=== PATIENT | female | born 1970 | race Caucasian/White ===

== ENCOUNTER 2021-09-02 15:53 | Observation (INO) ==
[2021-09-02 16:39] LABS: Basophils % 0.5 %; Eosinophils # 0.3 K/mcL (0.0-0.6); Eosinophils % 3.7 %; Hematocrit 39.1 % (35.3-44.9); Hemoglobin 12.1 g/dL (11.5-15.4); Immature Granulocytes % 0.4 % (0-4); Lymphocytes # 2.6 K/mcL (0.6-4.6); Lymphocytes % 34.1 %; Mean Corpuscular HGB Conc 30.9 g/dL (31.6-35.5); Mean Corpuscular Hemoglobin 29.7 pg (28.0-33.3); Mean Corpuscular Volume 96.1 fL (83.0-100.0); Mean Platelet Volume 11.5 fL (9.4-12.4); Monocytes # 0.7 K/mcL (0.0-1.3); Monocytes % 8.7 %; Platelet Count 278 K/mcL (140-400); Red Blood Count 4.07 M/mcL (3.82-4.97); Red Cell Distribution Width 17.8 % (11.5-14.5); Segmented Neutrophils % 52.6 %; White Blood Count 7.6 K/mcL (4.3-11.1)
[2021-09-02 17:00] LABS: BUN/Creatinine Ratio 11 (6-26); Blood Urea Nitrogen 13 mg/dL (6-20); Carbon Dioxide 23 mEq/L (23-29); Chloride 106 mEq/L (98-107); Glucose 88 mg/dL (70-105); Osmolality,Calculated 286 (280-300); Potassium 4.1 mEq/L (3.5-5.1); Sodium 138 mEq/L (136-145); eGFR For African Americans 58 (> 60); eGFR For Non-African Americans 47 (> 60)
[2021-09-02 17:01] LABS: Troponin I < 0.03 ng/mL (< 0.04)
[2021-09-02] MEDS ORDERED: Naloxone 0.4 MG/ML INJ IVP PRN (20:12)
[2021-09-02] MEDS ORDERED: Acetaminophen 325 MG TABLET PO PRN (20:12)
[2021-09-02] MEDS: Ondansetron 4 MG/2 ML VIAL IVP PRN (21:26)
[2021-09-02] MEDS ORDERED: Perflutren Lipid Microsphere 1.3 ML in 0.9 % Sodium Chloride 8.7 ML IVP PRN (22:22)
[2021-09-02] MEDS ORDERED: Aspirin 81 MG TAB.CHEW PO ONE (23:18)
[2021-09-03] MEDS ORDERED: Dextrose Gel 15 GM/37.5 ML TUBE PO PRN ×2 (00:56)
[2021-09-03] MEDS ORDERED: tiZANidine 4 MG TABLET PO PRN (00:56)
[2021-09-03] MEDS ORDERED: D5% in Water 1,000 ML IVC PRN (00:56)
[2021-09-03] MEDS ORDERED: *HR* Dextrose 50 % in Water (Syg) 50 ML SYRINGE IVP PRN (00:56)
[2021-09-03 02:21] LABS: Hematocrit 37.5 % (35.3-44.9); Hemoglobin 11.9 g/dL (11.5-15.4); Mean Corpuscular HGB Conc 31.7 g/dL (31.6-35.5); Mean Corpuscular Hemoglobin 30.7 pg (28.0-33.3); Mean Corpuscular Volume 96.6 fL (83.0-100.0); Mean Platelet Volume 10.8 fL (9.4-12.4); Platelet Count 247 K/mcL (140-400); Red Blood Count 3.88 M/mcL (3.82-4.97); Red Cell Distribution Width 18.2 % (11.5-14.5); White Blood Count 6.7 K/mcL (4.3-11.1)
[2021-09-03 02:28] LABS: INR 1.1; Prothrombin Time 12.4 Seconds (9.4-12.1)
[2021-09-03 02:31] LABS: Activated Partial Thrombo Time 39.4 Seconds (26.0-36.0)
[2021-09-03] MEDS: *HR* HYDROcodone/Acet 10/325 mg TABLET PO PRN ×2 (02:33→10:51)
[2021-09-03 02:44] LABS: Alanine Aminotransferase 46 Units/L (7-52); Albumin 3.7 g/dL (3.5-5.7); Albumin/Globulin Ratio 1.5 (1.1-2.2); Alkaline Phosphatase 98 Units/L (34-104); Aspartate Amino Transferase 28 Units/L (13-39); BUN/Creatinine Ratio 11 (6-26); Bilirubin,Total 0.5 mg/dL (0.3-1.0); Blood Urea Nitrogen 11 mg/dL (6-20); Calcium 9.1 mg/dL (8.6-10.3); Carbon Dioxide 27 mEq/L (23-29); Chloride 106 mEq/L (98-107); Chol/HDL Ratio 2.5 (0-4.9); Cholesterol 105 mg/dL (< 200); Globulin 2.5 g/dL (2.4-3.5); Glucose 93 mg/dL (70-105); HDL Cholesterol 42 mg/dL (40-59); LDL Cholesterol,Calculated 45 mg/dL (< 100); Magnesium 1.9 mg/dL (1.6-2.6); Osmolality,Calculated 289 (280-300); Phosphorous 4.7 mg/dL (2.7-4.5); Sodium 140 mEq/L (136-145); Total Protein 6.2 g/dL (6.4-8.9); Triglycerides 92 mg/dL (< 150); eGFR For African Americans > 60 (> 60); eGFR For Non-African Americans 58 (> 60)
[2021-09-03 03:02] LABS: Estimated Average Glucose 91 mg/dl; Hemoglobin A1C 4.8 %
[2021-09-03 03:51] LABS: Amphetamine Screen,Urine Negative ng/mL (Cutoff=1000); Barbiturate Screen,Urine Negative ng/mL (Cutoff=200); Benzodiazepines Screen,Urine Negative ng/mL (Cutoff=200); Cannabinoid Screen,Urine Negative ng/mL (Cutoff = 50); Cocaine Screen,Urine Negative ng/mL (Cutoff= 300); Opiate Screen,Urine Positive ng/mL (Cutoff=300); Phencyclidine Screen,Urine Negative ng/mL (Cutoff=25)
[2021-09-03] MEDS ORDERED: 0.9 % Sodium Chloride 1,000 ML IVC SCH (04:15)
[2021-09-03] MEDS ORDERED: *HR* Heparin 5,000 UNIT/ML VIAL SQ SCH (06:00)
[2021-09-03] MEDS: Ondansetron 4 MG/2 ML VIAL IVP PRN (06:13)
[2021-09-03] MEDS ORDERED: Regadenoson 0.4 MG/5 ML SYRINGE IVP ONE (06:53)
[2021-09-03] MEDS ORDERED: lisinopriL 5 MG TABLET PO SCH (09:00)
[2021-09-03] MEDS ORDERED: Aspirin 81 MG TAB.CHEW PO SCH (09:00)
[2021-09-03] MEDS ORDERED: Gabapentin 300 MG CAPSULE PO SCH (09:00)
[2021-09-03 11:19] VITALS: BP 137/86; PULSE 78; TEMP 98.3; O2SAT 93
[2021-09-03] MEDS ORDERED: QUEtiapine Fumarate 25 MG TABLET PO SCH (21:00)
== END 2021-09-03 15:46 | disposition home or self-care (01) ==
LOC: 3BNU 15:53 → EMEROOARM 15:53 → SUATTDRO 18:18 → 3BNU 19:25
PROVIDERS: ADMIT Internal Medicine; ATTEND Registered Nurse